=== PATIENT | female | born 2000 | race Caucasian/White ===

== ENCOUNTER 2024-05-11 21:26 | Emergency (ER) | payer OTHER, SELFPAY ==
[2024-05-11 21:37] VITALS: BP 119/83
[2024-05-11] MEDS: ZOFRAN ODT (ORALLY DISINTEGRATING) 4 MG PO (21:45)
[2024-05-11 21:48] LABS: % Basophils 0.3 % (0-2); % Eosinophils 0.1 % (0-6); % Immature Granulocytes 0.3 % (0-0.5); % Neutrophils 90.3 % (42.2-75.2); Absolute Basophils 0.1 10^3/uL (0-0.2); Absolute Immature Granulocytes 0.1 10^3/uL (0-0.05); Absolute Lymphocytes 1.4 10^3/uL (1.2-3.4); Absolute Monocytes 0.4 10^3/uL (0.1-0.6); Hematocrit 36.9 % (37.0-47.0); Hemoglobin 13.3 g/dL (12.0-16.0); Mean Corpuscular Volume 80.6 fL (81.0-99.0); Mean Platelet Volume 9.8 fL (7.4-10.4); Nucleated Red Blood Cells % 0 %; Platelet Count 288 10^3/uL (130-400); Red Blood Cell Count 4.58 10^6/uL (4.20-5.40); Red Cell Dist. Width 11.7 % (11.5-14.5); White Blood Cell Count 19.9 10^3/uL (4.8-10.8)
[2024-05-11 22:03] LABS: HCG, Serum Qualitative Screen Negative
[2024-05-11 22:11] LABS: ALT (SGPT) 18 U/L (0-35); AST (SGOT) 21 U/L (14-36); Albumin 4.5 g/dl (3.5-5.0); Alkaline Phosphatase 60 U/L (38-126); Blood Urea Nitrogen 10 mg/dl (7-17); Calcium 9.6 mg/dl (8.4-10.2); Carbon Dioxide 24 mmol/L (22-30); Chloride 102 mmol/L (98-107); Glucose 114 mg/dl (70-99); Lipase 52 U/L (23-300); Sodium 135 mmol/L (135-145); Total Bilirubin 0.9 mg/dl (0.2-1.3); Total Protein 7.2 g/dl (6.3-8.2); eGFR > 60.00
[2024-05-11 22:28] VITALS: BMI 32.5
[2024-05-11 22:35] VITALS: BP 122/91
[2024-05-11 23:00] VITALS: BP 123/83
[2024-05-11] MEDS: ZOFRAN 4 MG IV (23:19)
[2024-05-11] MEDS: DILAUDID 1 MG IV (23:20)
[2024-05-11] MEDS: PROTONIX IV 40 MG IV (23:27)
--- NOTE | 2024-05-11 23:45 | ED.GENMED ---
History of Present Illness
General
Chief Complaint: Abdominal Pain
Source: patient
Exam Limitations: none
Time Seen by Provider: 05/11/24 23:15
History of Present Illness
History of Present Illness:
This is a 23 year old female that comes in with c/o epigastric pain. States that this started today around 11am and has progressed. States that her mom gave her Pepto and this did not help. States that she also gave her an antacid but doesn't know
what. States that they think she has a ulcer but she has not been able to get into the GI specialist. States that she is nauseated with vomiting and the abd pain. Denies any fever, chills, chest pain, SOB, diarrhea, headache, dizziness, urinary
burning.
Past History
Past History
ED Past Medical History: Hypothyroidism, Psychiatric and Other (Possible Ulcers)
ED Past Surgical History: None
Social History
Tobacco: Vaping
Alcohol: Occasional
Drug: Marijuana
Personal: Single
Living: with family
Employment: Employed
Family History
Family History: Other (Noncontributory)
Review of Systems
Review of Systems
All Other Systems: ROS reviewed and negative except as documented in HPI and ROS
Constitutional: Reports no symptoms; Denies fever or chills
EENT: Reports no symptoms
Respiratory: Reports no symptoms; Denies cough or trouble breathing
Cardiac: Reports no symptoms; Denies chest pain
ABD/GI: Reports abdominal pain, nausea and vomiting; Denies diarrhea
: Reports no symptoms; Denies dysuria, frequency or urgency
Musculoskeletal: Reports no symptoms
Skin: Reports no symptoms
Neurological: Reports no symptoms; Denies dizzy or headache
Psychiatric: Reports no symptoms
Phy Exam
General Physical Exam
General Presentation: mild distress
General age: appears stated age
General Skin: warm and dry
General Habitus: normal
General Mental: alert
General Hydration: appears well hydrated
ENT Exam
ENT Exam: TM's normal, pharynx normal and neck supple
Eye Exam
Eye Exam: EOMI
Cardiovascular Exam
Cardiovascular Exam: regular rate/rhythm, no edema, no murmur and normal peripheral pulses
Pulmonary Exam
Pulmonary Exam: lungs clear, no respiratory distress, no rales, chest non tender, no crackles, no rhonchi, no wheezing and no cough
Gastrointestinal Exam
Gastrointestinal Exam: normal bowel sounds, soft, no organomegaly, no pulsatile mass, non distended and tender (Epigastric and right upper abd tenderness with palpation)
Musculoskeletal Exam
Musculoskeletal Exam: full ROM and no edema
Skin Exam
Skin Exam: normal color, warm/dry, no rash and no petechia
Psychiatric Exam
Psychiatric Exam: normal mood/affect
Course
Orders/Labs/Results
Orders:
Orders
05/11/24 21:39
Test Result ONCE
05/11/24 21:42
Complete Blood Count/With Diff Urgent
Comprehensive Metabolic Panel Urgent
HCG, Serum Qualitative Screen Urgent
Lipase Urgent
05/11/24 21:43
Ondansetron Orally Disint [Zofran Odt (Orally Disintegrating)] 4 mg .ROUTE .STK-MED ONE
05/11/24 21:45
Ondansetron Orally Disint [Zofran Odt (Orally Disintegrating)] 4 mg PO NOW STA
05/11/24 23:17
HYDROmorphone [Dilaudid] 1 mg .ROUTE .STK-MED ONE
Ondansetron Injectable [Zofran] 4 mg .ROUTE .STK-MED ONE
05/11/24 23:18
Ondansetron Injectable [Zofran] 4 mg IV NOW STA
05/11/24 23:20
HYDROmorphone [Dilaudid] 1 mg IV NOW STA
05/11/24 23:25
Pantoprazole [Protonix IV] 40 mg .ROUTE .STK-MED ONE
05/11/24 23:26
Sterile Water [Sterile Water For Injection] 10 ml .ROUTE .STK-MED ONE
05/11/24 23:27
Pantoprazole [Protonix IV] 40 mg IV NOW STA
05/12/24 02:07
Ketorolac [Toradol] 30 mg IV NOW STA
05/12/24 02:08
Ketorolac [Toradol] 30 mg .ROUTE .STK-MED ONE
05/12/24 02:15
Sucralfate Suspension [Carafate Suspension] 1 gm PO NOW STA
05/12/24 23:44
US Abdomen Complete/Upper Urgent
Reason For Exam: Upper abd pain
Abnormal Lab Results
05/11/24
21:42
WBC 19.9 H 10^3/uL
(4.8-10.8)
Hct 36.9 L %
(37.0-47.0)
MCV 80.6 L fL
(81.0-99.0)
Abs Immat Gran (auto) 0.1 H 10^3/uL
(0-0.05)
Absolute Neuts (auto) 18.0 H 10^3/uL
(1.4-6.5)
Neutrophils % 90.3 H %
(42.2-75.2)
Lymphocytes % 7.0 L %
(20.5-51.1)
Glucose 114 H mg/dl
(70-99)
05/11/24 21:42
05/11/24 21:42
Leukocytosis, Glucose nonfasting. Lipase normal at 52, HCG negative.
Vital Signs
Initial and Last Documented VS:
Initial Vital Signs
Temp Pulse Resp BP Pulse Ox
98.7 F 60 18 119/83 98
05/11/24 21:37 05/11/24 21:37 05/11/24 21:37 05/11/24 21:37 05/11/24 21:37
Last Documented Vital Signs
Temp Pulse Resp BP Pulse Ox
98.7 F 60 18 122/91 100
05/11/24 21:37 05/11/24 21:37 05/11/24 21:37 05/11/24 22:35 05/11/24 22:45
MDM/Problems Addressed
Differential Diagnosis Includes:
Gastritis, Gallbladder disease
MDM/Problems Addressed:
This is a 23 year old female that comes in with c/o epigastric pain. States that this started today and has continued to get worse. States that she needs to see the GI specialist as they think she may have an ulcer.
Will get labs and Ultrasound. Will medicate for pain
Back into see patient. Explained that her US is normal. There are no gallstones or sludge. This may be a gastritis or a developing Ulcer. Patient to stay away form Caffeine and will place patient on Protonix and Carafate. Patient to follow up with
the GI specialist for further evaluation. Patient to return with any concerns.
Chronic conditions affecting care:
NA
Acute Exacerbation and/or Progression of Chronic Illness:
NA
*Radiology
Radiology exam reviewed: radiology read reviewed (US- night hawk- Normal gallbladder. NO gallstones or sludge. negative Myles's sign. No biliary ductal dilation. Visualized liver, pancrease, and spleen without acute abnormality. Asymmetrically
smaller right kidney as compared to the left. No hydronephrosis, focal mass or stones. No free fluid. )
*Pulse Oximetry
Patient hypoxic: no
*EKG
Interpreted by ED Provider?: NA
Rate: EKG- N/A
*Hatchery Worker Interpretation
Rate: Hatchery Worker- N/A
*Critical Care Note
Total Time (30-74mins, 75-104mins- exclusive of procedures): Not Applicable
ED Attending Note
-
Portions of this chart may have been created with voice recognition software.� Occasional wrong word or��sound alike� substitutions may have occurred due to the inherent limitations of voice recognition software.
Discharge Plan
Departure
Patient Disposition: Home (Routine Discharge)
Date of Disposition: 05/12/24
Time of Disposition: 02:22
Patient with high blood pressure during this ER visit?: No
Condition: Good
Covid-19: Not Applicable
Discharge Problem:
Gastritis
Instructions: Harmon Diet, Gastritis (DC)
Prescriptions:
New
pantoprazole [Protonix] 40 mg tablet,delayed release (DR/EC)
40 mg PO DAILY Qty: 30 0RF
sucralfate [Carafate] 1 gram tablet
1 g PO ACHS Qty: 40 0RF
Rx Instructions:
30mn-1hour before meals and bedtime. Dissolve in 2 tsp of water and drink
No Action
norethindrone ac-eth estradiol [Junel ()] 1.5-30 mg-mcg Tablet
1 tab PO DAILY
levothyroxine 50 mcg Tablet
50 mcg PO DAILY
dextroamphetamine-amphetamine [Adderall XR] 30 mg Capsule,Extended Release 24hr
30 mg PO DAILY
Referrals:
Ana Burton MD [Active] - Call in 1-3 days for appt
Yumiko Navas CRNP [Family Provider] - Call in 1-3 days for appt
Activity Restrictions/Additional Instructions:
As discussed, your blood work shows that our White blood cell count is elevated. This can happen with stress. Your Ultrasound is negative for any gallbladder disease or any other acute process. This is most likely a gastritis or a developing Ulcer.
PLEASE STAY AWAY FROM CAFFEINE THIS WILL MAKE YOUR PAIN WORSE. NO COFFEE, TEA OR SODA WITH CAFFEINE. You have had 2 prescriptions sent to your Pharmacy. Please take as directed. IF YOU HAVE INCREASED OR CHANGING PAIN, FEVER, OR YOU HAVE ANY
OTHER CONCERNS PLEASE RETURN TO THE EMERGENCY ROOM.
Interventions
Interventions:
*Risk Screen - Suicide Last Done: 05/11/24 22:28
*General Assessment Last Done: 05/11/24 21:37
*Neglect/Abuse Screening Last Done: 05/11/24 22:28
ED- Fall Risk Assessment Last Done: 05/11/24 22:28
*ED COVID-19 Vaccine History Last Done: 05/11/24 22:28
CE-Ofbejc-Ggkozlabwn Assessment Last Done: 05/11/24 22:28
Discharge Date and Time
Print Language: SPANISH
[2024-05-12 02:06] VITALS: BP 113/78
[2024-05-12] MEDS: TORADOL 30 MG IV (02:09)
[2024-05-12] MEDS: CARAFATE SUSPENSION 1 GM PO (02:21)
== END 2024-05-12 02:32 | disposition home or self-care (01) ==
LOC: EMR 21:26
PROVIDERS: Emergency Medicine; EMERGENCY PHYSICIAN Emergency Medicine; FAMILY PHYSICIAN Nurse Practitioner Family
DX: K29.70 Gastritis, unspecified, without bleeding (principal); F17.290 Nicotine dependence, other tobacco product, uncomplicated
CPT/HCPCS: 99284; 96374; 96375 ×3; 76700; 80053; 83690; 84703; 85025

== ENCOUNTER 2024-08-06 16:58 | Emergency (ER) | payer OTHER, SELFPAY ==
[2024-08-06 17:06] VITALS: BP 102/70
--- NOTE | 2024-08-06 17:15 | ED.PDOC.TRB ---
ED Provider Triage
-
Patient seen by provider in Triage?: Seen in Triage
Attestation: A medical screening examination has been initiated by a qualified medical provider. Based on the assessment performed at this time, it has been determined that an emergent medical condition may exist and the patient has been informed
that further medical evaluation and possible additional diagnostic testing may be needed.
HPI: 24yoF here with epigastric pain that started this morning. Same symptoms over the summer and was diagnosed with gastritis. Had endoscopy in May which was reportedly normal.
GENERAL: Alert , in no apparent distress
EYE: No visual abnormalities.
NECK: Trachea midline
ENT: No visible abnormalities.
LUNGS: No acute respiratory distress
NEUROLOGICAL: Alert and oriented
SKIN: Skin intact. No visible changes.
MUSCULOSKELETAL: Moving extremities normally
PSYCH: Normal and appropriate interaction.
This is a medical evaluation conducted in person to initiate diagnostic evaluation and provide initial therapeutics. Please see further documentation by the treating clinician.
Abdominal labs and HCG ordered. Will order PO GI cocktail and Zofran as this has helped her in the past.
[2024-08-06] MEDS: ZOFRAN ODT (ORALLY DISINTEGRATING) 4 MG PO (17:23)
[2024-08-06] MEDS: PEPCID 20 MG PO (17:23)
[2024-08-06] MEDS: CARAFATE SUSPENSION 1 GM PO (17:23)
[2024-08-06 17:38] LABS: % Basophils 0.3 % (0-2); % Eosinophils 0.2 % (0-6); % Immature Granulocytes 0.4 % (0-0.5); % Lymphocytes 10.5 % (20.5-51.1); % Monocytes 2.9 % (1.7-9.3); % Neutrophils 85.7 % (42.2-75.2); Absolute Immature Granulocytes 0.1 10^3/uL (0-0.05); Absolute Lymphocytes 1.6 10^3/uL (1.2-3.4); Absolute Monocytes 0.4 10^3/uL (0.1-0.6); Absolute Neutrophils 12.9 10^3/uL (1.4-6.5); Hemoglobin 13.2 g/dL (12.0-16.0); Mean Corp Hgb Conc. 33.8 g/dL (33.0-37.0); Mean Corpuscular Hgb 27.8 pg (27.0-31.0); Mean Corpuscular Volume 82.3 fL (81.0-99.0); Mean Platelet Volume 10.1 fL (7.4-10.4); Nucleated Red Blood Cells % 0 %; Platelet Count 293 10^3/uL (130-400); Red Blood Cell Count 4.74 10^6/uL (4.20-5.40); Red Cell Dist. Width 11.8 % (11.5-14.5)
[2024-08-06 17:52] LABS: HCG, Serum Qualitative Screen Negative
[2024-08-06 18:03] LABS: ALT (SGPT) 21 U/L (0-35); AST (SGOT) 21 U/L (14-36); Albumin 4.4 g/dl (3.5-5.0); Alkaline Phosphatase 67 U/L (38-126); Blood Urea Nitrogen 13 mg/dl (7-17); Calcium 9.6 mg/dl (8.4-10.2); Carbon Dioxide 23 mmol/L (22-30); Chloride 103 mmol/L (98-107); Glucose 104 mg/dl (70-99); Lipase 43 U/L (23-300); Potassium 4.3 mmol/L (3.5-5.1); Sodium 137 mmol/L (135-145); Total Bilirubin 0.6 mg/dl (0.2-1.3); Total Protein 7.1 g/dl (6.3-8.2); eGFR > 60.00
--- NOTE | 2024-08-06 19:46 | ED.GENMED ---
History of Present Illness
General
Chief Complaint: Abdominal Pain
Source: patient and records
Exam Limitations: none
Time Seen by Provider: 08/06/24 19:08
Nursing documentation reviewed up to this point in time: agreed with
History of Present Illness
History of Present Illness:
24-year-old female with a past medical history of hypothyroidism, ADHD who presents to the emergency department for evaluation of abdominal pain. Patient reports onset of symptoms when she woke up this morning initially they were very intense but
since arrival in the ER and receiving medication they have improved. She says maximum intensity today was 5/10. She describes aching pain in the epigastrium nonradiating. Associated with nausea and a few episodes of nonbloody emesis. No diarrhea
or constipation. No urinary symptoms. No fever. No vaginal bleeding or discharge. Last menstrual period was a month ago. She notably has had 2 similar episodes in this past year�she had an initial episode of identical symptoms in February and was
seen at another hospital and had a CT scan that she was told was normal and she was told it was related to gastritis or an ulcer. She then had another episode in May was seen here and had an upper abdominal ultrasound that was unremarkable and was
again told it was related to gastritis or an ulcer�at that time she was started empirically on PPI and Carafate and she says that her symptoms resolved with this treatment. She then followed up with GI and had an endoscopy and was told her
endoscopy was normal�notably endoscopy was after resolution of symptoms. She was told it was likely an ulcer that responded well to treatment. She is no longer on a PPI. Yesterday she says that she was watching the [employer] game, eating buffalo
chicken dip and pizza and had some alcohol. This morning woke up with symptoms once again.
Past History
Past History
ED Past Medical History: Hypothyroidism, Psychiatric and Other (Possible Ulcers)
ED Past Surgical History: None
Social History
Tobacco: Vaping
Alcohol: Occasional
Drug: Marijuana
Personal: Single
Living: with family
Employment: Employed
Family History
Family History: Other (Noncontributory)
Review of Systems
Review of Systems
All Other Systems: ROS reviewed and negative except as documented in HPI and ROS
Constitutional: Denies fever
Respiratory: Denies trouble breathing
Cardiac: Denies chest pain
ABD/GI: Reports abdominal pain, nausea and vomiting; Denies diarrhea
: Denies dysuria, frequency, flank pain or bleeding
Musculoskeletal: Denies neck pain or back pain
Neurological: Denies dizzy or headache
Phy Exam
Physical Exam
Physical Exam:
General: Awake, alert, oriented x3; no acute distress
Head: Normocephalic, atraumatic
Eyes: Conjunctiva normal, sclera anicteric
Throat: Airway intact, handling secretions
Neck: Trachea midline, supple without meningismus
Lungs: Clear to auscultation bilaterally, no wheezing, rales, rhonchi
Heart: Regular rate and rhythm, no murmurs, gallops, or rubs
Abd: Soft, non distended, minimally tender epigastrium
Back: No CVA tender
Neuro: No gross deficits
Extremities: No edema in extremities, equal pulses in all extremities
Scores
Heart Failure Risk
Heart Failure Risk Score: Not Applicable
Heart Score for Chest Pain Patients
STEMI patient?: Not applicable
Withdrawal Assessment of Alcohol
Withdrawal Assessment Completed?: Not applicable
Course
Orders/Labs/Results
Orders:
Orders
08/06/24 17:10
Test Result ONCE
08/06/24 17:17
Famotidine [Pepcid] 20 mg PO NOW STA
Ondansetron Orally Disint [Zofran Odt (Orally Disintegrating)] 4 mg PO NOW STA
Sucralfate Suspension [Carafate Suspension] 1 gm PO NOW STA
08/06/24 17:22
Complete Blood Count/With Diff Urgent
Comprehensive Metabolic Panel Urgent
HCG, Serum Qualitative Screen Urgent
Lipase Urgent
Abnormal Lab Results
08/06/24
17:22
WBC 15.0 H 10^3/uL
(4.8-10.8)
Abs Immat Gran (auto) 0.1 H 10^3/uL
(0-0.05)
Absolute Neuts (auto) 12.9 H 10^3/uL
(1.4-6.5)
Neutrophils % 85.7 H %
(42.2-75.2)
Lymphocytes % 10.5 L %
(20.5-51.1)
Glucose 104 H mg/dl
(70-99)
08/06/24 17:22
08/06/24 17:22
Vital Signs
Initial and Last Documented VS:
Initial Vital Signs
Temp Pulse Resp BP Pulse Ox
36.6 C 56 16 102/70 100
08/06/24 17:06 08/06/24 17:06 08/06/24 17:06 08/06/24 17:06 08/06/24 17:06
Last Documented Vital Signs
Temp Pulse Resp BP Pulse Ox
36.6 C 56 16 102/70 100
08/06/24 17:06 08/06/24 17:06 08/06/24 17:06 08/06/24 17:06 08/06/24 17:06
MDM/Problems Addressed
Differential Diagnosis Includes:
Gastritis, PUD, pancreatitis
MDM/Problems Addressed:
24-year-old female presents for evaluation of epigastric pain associate with some nausea and vomiting started this morning was constant all day but improved with treatment that she received in triage here�received GI cocktail and PPI, Zofran. She
now feels much better. She has had 2 similar episodes earlier this year already had CT scan and upper abdominal ultrasound that were unremarkable. She had an endoscopy that she says was normal after a course of PPI and Carafate. She did have
buffalo chicken dip, pizza, alcohol yesterday prior to onset of symptoms this morning. Medical picture seems most consistent with an acute gastritis. She responded well to treatment here and is tolerating p.o. without issue. She had labs sent off
which showed a leukocytosis could be demargination from her vomiting. Her LFTs and lipase were normal, electrolytes normal. hCG negative. In my judgment no indication for emergent abdominal imaging. She feels comfortable going home. Will start on
PPI and Carafate once again. Spoke about return precautions all questions answered.
*Pulse Oximetry
Patient hypoxic: no
*Critical Care Note
Total Time (30-74mins, 75-104mins- exclusive of procedures): Not Applicable
Data Reviewed
Review of Other/Old Records Reveals: Labs, Records and Radiology Studies
Source: patient and records
ED Attending Note
-
Portions of this chart may have been created with voice recognition software.� Occasional wrong word or��sound alike� substitutions may have occurred due to the inherent limitations of voice recognition software.
Discharge Plan
Departure
Patient Disposition: Home (Routine Discharge)
Date of Disposition: 08/06/24
Time of Disposition: 19:38
Patient with high blood pressure during this ER visit?: No
Discharge Problem:
Abdominal pain
Instructions: Gastritis (DC), Abdominal Pain
Prescriptions:
New
pantoprazole 40 mg tablet,delayed release (DR/EC)
40 mg PO DAILY Qty: 60 0RF
sucralfate [Carafate] 100 mg/mL suspension
10 ml PO ACHS Qty: 1000 0RF
No Action
norethindrone ac-eth estradiol [Junel ()] 1.5-30 mg-mcg Tablet
1 tab PO DAILY
levothyroxine 50 mcg Tablet
50 mcg PO DAILY
dextroamphetamine-amphetamine [Adderall XR] 30 mg Capsule,Extended Release 24hr
30 mg PO DAILY
pantoprazole [Protonix] 40 mg tablet,delayed release (DR/EC)
40 mg PO DAILY Qty: 30 0RF
sucralfate [Carafate] 1 gram tablet
1 g PO ACHS Qty: 40 0RF
Rx Instructions:
30mn-1hour before meals and bedtime. Dissolve in 2 tsp of water and drink
Stand Alone Forms: Return to Work
Activity Restrictions/Additional Instructions:
Thank you for visiting the Emergency Department at [facility].
1. Please schedule a follow up appointment as directed. Call first thing tomorrow morning to make an appointment.
2. If indicated, please take your medications as instructed and indicated on discharge paperwork.
3. If any of your symptoms do not improve, or persist, or become more severe within 6-12 hours, please return to the emergency department for further care.
4. Please return to the emergency department if you develop a headache, neck pain/stiffness, fever greater than 100.4F, chest pain, shortness of breath, persistent nausea, vomiting, slurred speech, difficulty walking, numbness/tingling, weakness,
signs of infection or any other symptoms that are worrisome to you.
Please call [phone] if you have any questions.
Interventions
Interventions:
[id number] Assessment Last Done: 08/06/24 18:40
Discharge Date and Time
Print Language: TAIWANESE
[2024-08-06 19:57] VITALS: BP 118/72
== END 2024-08-06 19:59 | disposition home or self-care (01) ==
LOC: EMR 16:58
PROVIDERS: Emergency Medicine; EMERGENCY PHYSICIAN Emergency Medicine; FAMILY PHYSICIAN Nurse Practitioner Family
DX: R10.13 Epigastric pain (principal); E03.9 Hypothyroidism, unspecified; F90.9 Attention-deficit hyperactivity disorder, unspecified type; F17.290 Nicotine dependence, other tobacco product, uncomplicated
CPT/HCPCS: 99283; 80053; 83690; 84703; 85025

== ENCOUNTER 2024-08-08 00:45 | Emergency (ER) | payer OTHER, SELFPAY ==
[2024-08-08 00:47] VITALS: BP 129/78
--- NOTE | 2024-08-08 01:14 | ED.GENMED ---
History of Present Illness
<Mike Schwab DO - Last Filed: 08/08/24 06:17>
General
Chief Complaint: Abdominal Pain
Time Seen by Provider: 08/08/24 01:14
<TOSHIA Michelle - Last Filed: 08/08/24 06:04>
General
Source: patient
Nursing documentation reviewed up to this point in time: agreed with
History of Present Illness
History of Present Illness:
Patient is a 24 year old female with a PMH of possible ulcers presents to the ED with complaints of abdominal pain x 6 hours. She was here yesterday for the same symptoms and was discharged with Protonix and Carafate. She states the pain started
around 700pm. Patient ate chicken after symptoms since she hasn't eaten much. She vomited undigested food shortly after. Denies any blood in vomit. The abdominal pain has been getting worse with time and is worse with laying down and movement. The
pain is constant but the severity varies, at the time she rated it an 8/10. It is epigastric and does not radiate. She took the after the symptom onset and states it did not help. There have been the same episodes of this in February and May, which
were resolved with a PPI and Carafate. She states during previous episodes she has been able to eat fine the next day. This time the medication did not help and symptoms have been lasting longer than previous episodes. She admits to dizziness when
moving around. She denies fever changes in bowel movement sob chest pain headache.
Patient states she went to the doctor in May, imaging was normal, and they said it was a healed ulcer. Protonix and Carafate have alleviated symptoms in the past. She admits to very occasional alcohol use but denies tobacco use. She smokes
marijuana. She has a simple diet and does not eat any spicy foods.
Past History
<TOSHIA Michelle - Last Filed: 08/08/24 06:04>
Past History
ED Past Medical History: Hypothyroidism, Psychiatric and Other (Possible Ulcers)
ED Past Surgical History: None
Social History
Tobacco: Vaping
Alcohol: Occasional
Drug: Marijuana
Personal: Single
Living: with family
Employment: Employed
Family History
Family History: Other (Noncontributory)
Review of Systems
<TOSHIA Michelle - Last Filed: 08/08/24 06:04>
Review of Systems
Allergies reviewed?: Yes
Constitutional: Reports no symptoms
Respiratory: Reports no symptoms
Cardiac: Reports no symptoms
ABD/GI: Reports abdominal pain, nausea and vomiting
: Reports no symptoms
Neurological: Reports dizzy
Phy Exam
<TOSHIA Michelle - Last Filed: 08/08/24 06:04>
General Physical Exam
General Presentation: moderate distress
General age: appears stated age
General Habitus: normal
General Mental: alert
Cardiovascular Exam
Cardiovascular Exam: regular rate/rhythm, no edema, no gallop, no JVD and no murmur
Pulmonary Exam
Pulmonary Exam: lungs clear, no respiratory distress, no rales, chest non tender, no crackles, no rhonchi, no stridor, no wheezing and no cough
Gastrointestinal Exam
Gastrointestinal Exam: normal bowel sounds, soft, no organomegaly, no pulsatile mass, non distended, no cva tenderness and tender
Palpation: left upper quadrant: No tenderness, left lower quadrant: No tenderness, right upper quadrant: Severe tenderness and right lower quadrant: Moderate tenderness
Course
<Mike Schwab DO - Last Filed: 08/08/24 06:17>
Orders/Labs/Results
Orders:
Orders
08/08/24 01:34
Sucralfate Suspension [Carafate Suspension] 1 gm PO NOW STA
08/08/24 01:52
EKG [Electrocardiogram (*1)] Urgent
Reason for Study: Abdominal Pain
08/08/24 01:54
Test Result ONCE
08/08/24 01:57
0.9% Sodium Chloride 1000 ml [Nss] 1,000 ml IV BOLUS
Mag Hydrox/Al Hydrox/Simeth [Maalox] 30 ml Phenobarb/Hyoscy/Atropine/Scop [] 10 ml PO NOW
08/08/24 02:01
CBC/With Diff [Complete Blood Count/With Diff] Urgent
CMP [Comprehensive Metabolic Panel] Urgent
HCG, Serum Qualitative Screen Urgent
Lipase Urgent
08/08/24 02:03
Phenobarb/Hyoscy/Atropine/Scop [] 10 ml .ROUTE .STK-MED ONE
08/08/24 02:04
Mag Hydrox/Al Hydrox/Simeth [Maalox] 30 ml .ROUTE .STK-MED ONE
08/08/24 03:13
Famotidine [Pepcid] 20 mg IV NOW STA
08/08/24 04:21
Mag Hydrox/Al Hydrox/Simeth [Maalox] 30 ml Phenobarb/Hyoscy/Atropine/Scop [] 10 ml Viscous Lidocaine 2% [Xylocaine Viscous Cup] 10 ml PO NOW
08/08/24 04:23
US Abdomen Complete/Upper Urgent
Comment:
Reason For Exam: abdominal pain
08/08/24 04:25
Mag Hydrox/Al Hydrox/Simeth [Maalox] 30 ml .ROUTE .STK-MED ONE
Phenobarb/Hyoscy/Atropine/Scop [] 10 ml .ROUTE .STK-MED ONE
Viscous Lidocaine 2% [Xylocaine Viscous Cup] 15 ml .ROUTE .STK-MED ONE
08/08/24 05:35
Ondansetron Orally Disint [Zofran Odt (Orally Disintegrating)] 4 mg .ROUTE .STK-MED ONE
08/08/24 05:36
Ondansetron Orally Disint [Zofran Odt (Orally Disintegrating)] 4 mg PO NOW STA
Abnormal Lab Results
08/08/24
02:01
WBC 11.8 H 10^3/uL
(4.8-10.8)
MCV 80.7 L fL
(81.0-99.0)
Absolute Neuts (auto) 8.4 H 10^3/uL
(1.4-6.5)
Glucose 101 H mg/dl
(70-99)
AST 38 H U/L
(14-36)
08/08/24 02:01
08/08/24 02:01
Vital Signs
Initial and Last Documented VS:
Initial Vital Signs
Temp Pulse Resp BP Pulse Ox
97.6 F 94 18 129/78 98
08/08/24 00:47 08/08/24 00:47 08/08/24 00:47 08/08/24 00:47 08/08/24 00:47
Last Documented Vital Signs
Temp Pulse Resp BP Pulse Ox
97.6 F 56 20 117/63 98
08/08/24 00:47 08/08/24 03:27 08/08/24 03:27 08/08/24 03:27 08/08/24 00:47
Marylt;TOSHIA Michelle - Last Filed: 08/08/24 06:04>
Orders/Labs/Results
Orders:
Orders
08/08/24 01:34
Sucralfate Suspension [Carafate Suspension] 1 gm PO NOW STA
08/08/24 01:52
EKG [Electrocardiogram (*1)] Urgent
Reason for Study: Abdominal Pain
08/08/24 01:54
Test Result ONCE
08/08/24 01:57
0.9% Sodium Chloride 1000 ml [Nss] 1,000 ml IV BOLUS
Mag Hydrox/Al Hydrox/Simeth [Maalox] 30 ml Phenobarb/Hyoscy/Atropine/Scop [] 10 ml PO NOW
08/08/24 02:01
CBC/With Diff [Complete Blood Count/With Diff] Urgent
CMP [Comprehensive Metabolic Panel] Urgent
HCG, Serum Qualitative Screen Urgent
Lipase Urgent
08/08/24 02:03
Phenobarb/Hyoscy/Atropine/Scop [] 10 ml .ROUTE .STK-MED ONE
08/08/24 02:04
Mag Hydrox/Al Hydrox/Simeth [Maalox] 30 ml .ROUTE .STK-MED ONE
08/08/24 03:13
Famotidine [Pepcid] 20 mg IV NOW STA
08/08/24 04:21
Mag Hydrox/Al Hydrox/Simeth [Maalox] 30 ml Phenobarb/Hyoscy/Atropine/Scop [] 10 ml Viscous Lidocaine 2% [Xylocaine Viscous Cup] 10 ml PO NOW
08/08/24 04:23
US Abdomen Complete/Upper Urgent
Comment:
Reason For Exam: abdominal pain
08/08/24 04:25
Mag Hydrox/Al Hydrox/Simeth [Maalox] 30 ml .ROUTE .STK-MED ONE
Phenobarb/Hyoscy/Atropine/Scop [] 10 ml .ROUTE .STK-MED ONE
Viscous Lidocaine 2% [Xylocaine Viscous Cup] 15 ml .ROUTE .STK-MED ONE
08/08/24 05:35
Ondansetron Orally Disint [Zofran Odt (Orally Disintegrating)] 4 mg .ROUTE .STK-MED ONE
08/08/24 05:36
Ondansetron Orally Disint [Zofran Odt (Orally Disintegrating)] 4 mg PO NOW STA
Abnormal Lab Results
08/08/24
02:01
WBC 11.8 H 10^3/uL
(4.8-10.8)
MCV 80.7 L fL
(81.0-99.0)
Absolute Neuts (auto) 8.4 H 10^3/uL
(1.4-6.5)
Glucose 101 H mg/dl
(70-99)
AST 38 H U/L
(14-36)
08/08/24 02:01
08/08/24 02:01
Vital Signs
Initial and Last Documented VS:
Initial Vital Signs
Temp Pulse Resp BP Pulse Ox
97.6 F 94 18 129/78 98
08/08/24 00:47 08/08/24 00:47 08/08/24 00:47 08/08/24 00:47 08/08/24 00:47
Last Documented Vital Signs
Temp Pulse Resp BP Pulse Ox
97.6 F 56 20 117/63 98
08/08/24 00:47 08/08/24 03:27 08/08/24 03:27 08/08/24 03:27 08/08/24 00:47
<TOSHIA Michelle - Last Filed: 08/08/24 06:04>
MDM/Problems Addressed
Differential Diagnosis Includes:
PUD, pancreatitis, gastritis
MDM/Problems Addressed:
give fluids and order labs lipase hcg ekg 216a update ekg nsr 418a update GI cocktail helped a little but symptoms have worsened within the past 5 minutes patient was given Zofran. 603a update Zofran helped nausea, pain is starting to alleviate
currently a 04/16.
<TOSHIA Michelle - Last Filed: 08/08/24 06:04>
*Critical Care Note
Total Time (30-74mins, 75-104mins- exclusive of procedures): Not Applicable
<Mike Schwab DO - Last Filed: 08/08/24 06:17>
Update Note
Update Note:
Ultrasound abdomen
IMPRESSION:
No acute abnormality. Gallbladder is normal. No biliary ductal dilatation.
Finalized at 6:03 AM EST
08/08/2024 0616 AM: Patient feeling much better at this time. Wishes to be discharged. Will follow-up with GI.
ED Attending Note
<TOSHIA Michelle - Last Filed: 08/08/24 06:04>
-
Portions of this chart may have been created with voice recognition software.� Occasional wrong word or��sound alike� substitutions may have occurred due to the inherent limitations of voice recognition software.
Discharge Plan
Departure
Patient Disposition: Home (Routine Discharge)
Date of Disposition: 08/08/24
Time of Disposition: 06:10
Patient with high blood pressure during this ER visit?: No
Condition: Good
Discharge Problem:
Gastritis
Instructions: Acid Reflux and GERD in Adults (DC), Abdominal Pain
Prescriptions:
No Action
norethindrone ac-eth estradiol [Junel ()] 1.5-30 mg-mcg Tablet
1 tab PO DAILY
levothyroxine 50 mcg Tablet
50 mcg PO DAILY
dextroamphetamine-amphetamine [Adderall XR] 30 mg Capsule,Extended Release 24hr
30 mg PO DAILY
pantoprazole [Protonix] 40 mg tablet,delayed release (DR/EC)
40 mg PO DAILY Qty: 30 0RF
sucralfate [Carafate] 1 gram tablet
1 g PO ACHS Qty: 40 0RF
Rx Instructions:
30mn-1hour before meals and bedtime. Dissolve in 2 tsp of water and drink
pantoprazole 40 mg tablet,delayed release (DR/EC)
40 mg PO DAILY Qty: 60 0RF
sucralfate [Carafate] 100 mg/mL suspension
10 ml PO ACHS Qty: 1000 0RF
Referrals:
[facility] [Provider Group]
[facility] [Provider Group]
Yumiko Navas CRNP [Family Provider] -
Activity Restrictions/Additional Instructions:
Please continue to take your previously prescribed medications.
It was a pleasure meeting you and taking part in your care. We hope for your continued healing and wellness.
Please read discharge instructions in their entirety. However, they are for general education and may not describe your exact diagnosis at discharge. Information on your ER visit and medical conditions were discussed with you along with appropriate
follow up information...
If indicated, please take your medications as instructed and indicated on discharge paperwork.
Please schedule a follow up appointment as directed. Call to schedule an appointment
Please return to the emergency department with ANY change in, persisting, or worsening of symptoms. If any of your symptoms do not improve, or persist, or become more severe within 6-12 hours, please return to the emergency department for further
care.
Please return to the emergency department if you develop a headache, neck pain/stiffness, fever greater than 100.4F, chest pain, shortness of breath, persistent nausea, vomiting, slurred speech, difficulty walking, numbness/tingling, weakness, signs
of infection or any other symptoms that are worrisome to you.
If you have any questions or concerns please do not hesitate to call the Hospital at or E-mail me directly at [email or web address]
Interventions
Interventions:
*Risk Screen - Suicide Last Done: 08/08/24 00:47
*General Assessment Last Done: 08/08/24 00:47
*Neglect/Abuse Screening Last Done: 08/08/24 00:47
ED- Fall Risk Assessment Last Done: 08/08/24 01:48
TM-Gsgvju-Vbgefzecvi Assessment Last Done: 08/08/24 01:48
Discharge Date and Time
Print Language: SCOTTISH
[2024-08-08] MEDS: CARAFATE SUSPENSION 1 GM PO (01:40)
[2024-08-08 01:42] VITALS: BMI 36.1
[2024-08-08] MEDS: MAALOX 40 PO (02:05)
[2024-08-08] MEDS: NSS 1000 IV (02:05)
[2024-08-08 02:09] LABS: % Basophils 0.4 % (0-2); % Eosinophils 0.2 % (0-6); % Immature Granulocytes 0.2 % (0-0.5); % Lymphocytes 23.1 % (20.5-51.1); % Monocytes 5.3 % (1.7-9.3); % Neutrophils 70.8 % (42.2-75.2); Absolute Basophils 0.1 10^3/uL (0-0.2); Absolute Lymphocytes 2.7 10^3/uL (1.2-3.4); Absolute Monocytes 0.6 10^3/uL (0.1-0.6); Absolute Neutrophils 8.4 10^3/uL (1.4-6.5); Hematocrit 37.1 % (37.0-47.0); Hemoglobin 12.9 g/dL (12.0-16.0); Mean Corp Hgb Conc. 34.8 g/dL (33.0-37.0); Mean Corpuscular Volume 80.7 fL (81.0-99.0); Mean Platelet Volume 9.8 fL (7.4-10.4); Nucleated Red Blood Cells % 0 %; Platelet Count 289 10^3/uL (130-400); Red Cell Dist. Width 11.9 % (11.5-14.5); White Blood Cell Count 11.8 10^3/uL (4.8-10.8)
[2024-08-08 02:19] LABS: HCG, Serum Qualitative Screen Negative
[2024-08-08 02:23] LABS: ALT (SGPT) 24 U/L (0-35); AST (SGOT) 38 U/L (14-36); Albumin 4.2 g/dl (3.5-5.0); Alkaline Phosphatase 51 U/L (38-126); Blood Urea Nitrogen 14 mg/dl (7-17); Calcium 9.5 mg/dl (8.4-10.2); Carbon Dioxide 24 mmol/L (22-30); Chloride 104 mmol/L (98-107); Estimated Creatinine Clearance > 125 ml/min; Glucose 101 mg/dl (70-99); Lipase 41 U/L (23-300); Potassium 4.1 mmol/L (3.5-5.1); Sodium 139 mmol/L (135-145); Total Bilirubin 0.6 mg/dl (0.2-1.3); Total Protein 6.8 g/dl (6.3-8.2); eGFR > 60.00
[2024-08-08] MEDS: PEPCID 20 MG IV (03:20)
[2024-08-08 03:27] VITALS: BP 117/63
[2024-08-08] MEDS: MAALOX 50 PO (04:27)
[2024-08-08] MEDS: ZOFRAN ODT (ORALLY DISINTEGRATING) 4 MG PO (05:37)
[2024-08-08 06:28] VITALS: BP 129/78
== END 2024-08-08 06:30 | disposition home or self-care (01) ==
LOC: EMR 00:45
PROVIDERS: EMERGENCY PHYSICIAN Student in an Organized Health Care Education/Training Program; FAMILY PHYSICIAN Nurse Practitioner Family
DX: K29.70 Gastritis, unspecified, without bleeding (principal)
CPT/HCPCS: 99285; 96374; 96361; 76700; 80053; 83690; 84703; 85025; 93005